=== PATIENT | male | born 1955 | race African-American/Black ===

== ENCOUNTER 2023-10-07 13:03 | Emergency (ER) | payer MEDICARE, OTHER ==
[~2023-10-07] VITALS: Ht 177.8 cm; Wt 80.0 kg
[2023-10-07 13:49] VITALS: O2SAT 98
[2023-10-07 17:43] VITALS: BP 157/81; PULSE 69; RESP 17; TEMP 97.9
== END 2023-10-07 17:45 | disposition home or self-care (01) ==
LOC: ER 13:03
DX: T83.091A Other mechanical complication of indwelling urethral catheter, initial encounter (principal); J45.909 Unspecified asthma, uncomplicated; E78.00 Pure hypercholesterolemia, unspecified; Z86.73 Personal history of transient ischemic attack (TIA), and cerebral infarction without residual deficits; X58.XXXA Exposure to other specified factors, initial encounter
CPT/HCPCS: 99281